=== PATIENT | male | born 1955 ===

== ENCOUNTER → 2020-11-24 | Outpatient (CLI) | payer BC ==
--- NOTE | 2020-11-25 12:08 | SLEEP ---
DATE OF STUDY: 11/24/2020 HOME SLEEP STUDY ATTENDING PHYSICIAN: Dr. Cm Swann. The patient is a 65-year-old who weighs 220 pounds with a BMI of 37.8. The patient's Rio score was 8. The patient underwent home sleep study performed at [facility]. Total recording time was 733 minutes. During the night study, the patient had 156 obstructive apneas, 2 central apneas, 13 mixed apneas and 202 hypopneas. The patient's AHI was 50 per hour. Nocturnal oximetry study revealed an average oxygen saturation 91% with a lowest of 80%. 118 minutes were spent with oxygen saturation less than 90%. Mean heart rate 68 beats per minute. IMPRESSION: 1. Severe obstructive sleep apnea at an apnea hypopnea index of 50 per hour. 2. Nocturnal hypoxia secondary to obstructive sleep apnea. RECOMMENDATIONS: 1. The patient would benefit from treatment of sleep apnea with CPAP. This can be performed as an in-lab CPAP titration study versus home auto CPAP. 2. The patient is optimally treated with CPAP, then follow up in 4-6 weeks to assess compliance and to document clinical improvement. 3. Weight loss is advised. 4. Avoid [employer] depressants. 5. Caution regarding driving until symptoms of sleep apnea have resolved with CPAP. GALA DR: Ana TID: [id number] CC: Arin SWANN MD
== END ==
LOC: RT 09:06
PROVIDERS: ATTEND Family Medicine
DX: G47.33 Obstructive sleep apnea (adult) (pediatric) (principal); G47.34 Idiopathic sleep related nonobstructive alveolar hypoventilation
CPT/HCPCS: G0399